=== PATIENT | female | born 1965 | race Caucasian/White ===

== ENCOUNTER → 2020-12-29 16:03 | Outpatient (CLI) | payer OTHER, SELFPAY ==
--- NOTE | ~2020-12-29 | XR_ITS ---
EXAMINATION: XR_CERV2-3V_CR DATE: 12/29/2020 16:48 INDICATION: Neck pain. TECHNIQUE: 3 views of cervical spine were obtained. COMPARISON: None. FINDINGS: There is 4 degrees levocurvature of cervical spine. There is 2 mm retrolisthesis of C5 on C 6. Vertebral body heights are normal. There is moderately decreased disc height at C5-C6. There is mu ltilevel uncovertebral joint osteoarthritis, severe on the left at C5-C6. There is severe facet joint osteoarthritis at C7-T1. There is mild central canal stenosis at C5-C6. No prevertebral soft tissue swelling. IMPRESSION: 1. Moderate cervical spondylosis. Reviewed, dictated and finalized at location A.
--- NOTE | ~2020-12-29 | XR_ITS ---
EXAMINATION: XR lumbar spine 2-3V DATE: 12/29/2020 16:48 INDICATION: Left-sided low back pain. TECHNIQUE: 3 views of lumbar spine were obtained. COMPARISON: None. FINDINGS: There is 4 degrees dextrocurvature of lumbar spine. There is 3 mm retrolisthesis of L2 on L 3. Vertebral body heights are normal. There is mildly decreased disc height at L2-L3 and moderately d ecreased disc height at L4-L5 and L5-S1. There is severe facet joint osteoarthritis in lower lumbar s pine. IMPRESSION: 1. Moderate lumbar spondylosis. Reviewed, dictated and finalized at location A.
== END ==
PROVIDERS: PCP Nurse Practitioner; Visit Provider Nurse Practitioner
DX: M47.816 Spondylosis without myelopathy or radiculopathy, lumbar region (principal); M47.812 Spondylosis without myelopathy or radiculopathy, cervical region
CPT/HCPCS: 72040; 72100